=== PATIENT | female | born 1940 | race Caucasian/White ===

== ENCOUNTER 2019-11-14 08:53 | Emergency (ER) | payer MEDICARE, OTHER, SELFPAY ==
--- NOTE | ~2019-11-14 | CT_ITS ---
EXAMINATION: CT abdomen pelvis w con INDICATION: Rectal bleeding TECHNIQUE: Computed tomographic images of the abdomen and pelvis were obtained after the administrati on of 100 cc of Omnipaque 350 intravenous contrast. The dose-length product (DLP) was 626.14 mGy-cm. Automated exposure control and iterative reconstruction technique were employed. COMPARISON: 11/04/2017 FINDINGS: Minimal dependent atelectasis is present in the lung bases. Cardiomegaly is noted. There is a small sliding hiatal hernia. The gallbladder is surgically absent. There is mild enlargement of th e common bile duct and central intrahepatic ducts which is likely due to post cholecystectomy state. Punctate calcifications in otherwise normal appearing liver and spleen likely represent healed granul omatous disease. The pancreas and adrenal glands are normal. The right kidney is normal. There is an 8 mm cyst of the left kidney. There is calcified atherosclerosis of the aorta and many of the other a rteries. No pathologically enlarged abdominal or pelvic lymph nodes are identified. There is no free intraperitoneal gas or evidence of bowel obstruction. There is a fat-containing umbilical hernia. Mil d lumbar spondylosis is noted. There has been an interval burst fracture of L3 and interval compressi on fracture of L4. IMPRESSION: 1. No CT correlate for the patient's symptoms. 2. Interval L3 burst fracture and L4 compression fracture. Reviewed, dictated and finalized at location B.
[2019-11-14 08:59] VITALS: BP 205/130; PULSE 87; RESP 16; TEMP 36.6; O2SAT 100
[2019-11-14 09:15] LABS: Basophils Percent Auto 0.5 % (0.2-1.2); Eosinophils Absolute Auto 0.2 K/mm3 (0-0.3); Hematocrit 42.6 % (37.0-47.0); Hemoglobin 14.1 g/dL (12.0-15.0); Immature Granulocyte Absolute 0.02 K/mm3 (0.00-0.031); Immature Granulocyte Percent A 0.3 % (0-0.5); Lymphocytes Absolute Auto 1.85 K/mm3 (0.9-3.2); Lymphocytes Percent Auto 24.2 % (18.3-44.2); Mean Corpuscular HGB Conc 33.1 g/dl (32-36); Mean Corpuscular Hemoglobin 31.8 pg (26-34); Mean Corpuscular Volume 95.9 fl (80-100); Mean Platelet Volume 9.5 fl (7.4-10.4); Monocytes Absolute Auto 0.5 K/mm3 (0.1-0.6); Monocytes Percent Auto 6.6 % (2.6-8.5); Neutrophils Absolute Auto 5.1 K/mm3 (1.3-6.7); Neutrophils Percent Auto 66.4 % (45.5-73.1); Platelet Count Result 209 k/mm3 (150-375); Red Blood Count 4.44 M/mm3 (4.2-5.4); Red Cell Distribution Width 12.9 % (11.5-14.5); White Blood Count 7.6 K/mm3 (4.5-10.0)
[2019-11-14 09:27] LABS: INR 1.1; Prothrombin Time 14.2 Seconds (11.1-14.7)
[2019-11-14 09:28] LABS: Partial Thromboplastin Time 31.7 SECONDS (22.3-36.8)
[2019-11-14 09:29] LABS: Alanine Aminotransferase 23 U/L (4-35); Albumin Level 4.8 g/dL (3.5-5.1); Alkaline Phosphatase 105 U/L (38-126); Anion Gap 10.8 mmol/L (7-16); Aspartate Amino Transferase 32 U/L (14-36); Bilirubin,Total 0.7 mg/dL (0.2-1.3); Blood Urea Nitrogen 14 mg/dL (7-17); Calcium 9.6 mg/dL (8.4-10.2); Carbon Dioxide 30 mmol/L (22-30); Chloride 102 mmol/L (98-107); Estimated CRCL calculation 41 ml/min; Estimated Glomerular Filt Rate 60; Glucose 102 mg/dL (65-105); Potassium 3.8 mmol/L (3.4-5.0); Sodium 139 mmol/L (137-145)
[2019-11-14 09:30] VITALS: BP 180/93; PULSE 67; RESP 18; O2SAT 97
--- NOTE | 2019-11-14 09:53 | ED.GIBLEED ---
HPI - GI Bleed General Chief complaint: GI Bleed Stated complaint: Rectal bleeding Time Seen by Provider: 11/14/19 09:12 History of Present Illness HPI Narrative: Patient presents with her ,(of a different last name) rectal bleeding. Started last night. Had large clots. She takes Xarelto for 7 years for A. fib. Had a colonoscopy 2 or 3 years ago, and [place]. She does not know the name of the GI doctor. There is no colon cancer in her family. She has no abdominal pain. He has no fever, chills, or sweats. She has not been sick in the last couple weeks. He has had no COVID exposure. She drinks bourbon every night. complaint: other (Rectal clot) Onset (ago): day(s) Pain Consistency: intermittent Relieving factors: none Exacerbating factors: none Context: history of GI bleed and anticoagulant use Associated symptoms: denies other symptoms Related Data Home Medications Medication Instructions Recorded Confirmed acetazolamide 250 mg tablet 250 mg PO DAILY 03/21/19 levothyroxine 112 mcg tablet 112 mcg PO DAILY 03/21/19 Allergies Allergy/AdvReac Type Severity Reaction Status Date / Time latex Allergy Unknown Swelling Verified 11/14/19 09:02 Review of Systems Review of Systems: Narrative: CONSTITUTIONAL: Denies fever, chills, or sweats. EYES: Denies visual changes, redness, or discharge. ENT: Denies rhinorrhea, congestion, sore throat, or otalgia. CARDIOVASCULAR: Denies chest pain, palpitations, or edema. RESPIRATORY: Denies cough or dyspnea. GASTROINTESTINAL: Denies abdominal pain, nausea, vomiting, or diarrhea. GENITOURINARY: Denies dysuria or hematuria. SKIN: Denies rash or itching. MUSCULOSKELETAL: Denies back pain, joint pain, or myalgia. NEUROLOGIC: Denies headache, numbness, or weakness. PSYCHIATRIC: Denies anxiety or depression. All systems reviewed & are unremarkable except as noted in HPI and below PMFSH Past Medical History Medical History (Updated 11/14/19 @ 09:57 by Vesna Fraga MD) A-fib Benign essential hypertension BMI 33.0-33.9,adult Encounter for routine adult health examination with abnormal findings Follow up Fracture of rib of right side GERD (gastroesophageal reflux disease) Hyperlipidemia Hypothyroidism (acquired) Left hand pain On rat exterminator drug therapy Osteoporosis RLS (restless legs syndrome) Tenosynovitis of left wrist UTI (urinary tract infection) Surgical History Surgical History History of cholecystectomy History of hysterectomy History of pubovaginal sling History of vertebroplasty Social History Social History Smoking status: Former smoker Smoking end date: 04/19/04 Alcohol intake: current Gender identity (if verbalized by the patient): Female Exam Narrative: Exam Narrative: GENERAL: Well-appearing, well-nourished, and in no acute distress. HEAD: Normocephalic, atraumatic. EYES: PERRLA and EOMI. ENT: Nares clear, no rhinorrhea or epistaxis. Mucous membranes moist. NECK: Supple. CHEST: Clear to auscultation. No respiratory distress. HEART: Regular rate and rhythm. No murmur heard. Normal peripheral pulses. ABDOMEN: Soft, nontender, nondistended, normal active bowel sounds. EXTREMITIES: Normal range of motion. No edema. SKIN: Warm, dry, no rash. NEURO: No focal deficits. Alert and oriented x3. PSYCH: Normal mood and affect. Course Reevaluation(s) Reevaluation #1: Explain the CAT scan results, and Dr. Albert's recommendation that she be admitted for observation, and she and her agreed to stop the Xarelto and come into the hospital. Then just a couple minutes later, they call me back in, to say that they did not want to stay in the hospital, for chance of getting COVID. The patient will call Dr. Albert's office, and make an outpatient appointment. I gave her all the warnings of rectal bleeding, weakness, shortness of breath,
[2019-11-14 09:58] VITALS: BP 166/99; PULSE 82
[2019-11-14 10:00] VITALS: BP 163/77; PULSE 85
[2019-11-14 10:02] VITALS: BP 153/93; PULSE 88
[2019-11-14 10:59] VITALS: BP 153/92; PULSE 82; RESP 18; O2SAT 98
== END 2019-11-14 11:12 | disposition left against medical advice (07) ==
PROVIDERS: Emergency Provider Emergency Medicine; PCP Internal Medicine
DX: K62.5 Hemorrhage of anus and rectum (principal); I48.91 Unspecified atrial fibrillation; Z79.01 Long term (current) use of anticoagulants; I10 Essential (primary) hypertension; K21.9 Gastro-esophageal reflux disease without esophagitis; E78.5 Hyperlipidemia, unspecified; E03.9 Hypothyroidism, unspecified; M81.0 Age-related osteoporosis without current pathological fracture; G25.81 Restless legs syndrome; Z87.440 Personal history of urinary (tract) infections; Z87.891 Personal history of nicotine dependence
CPT/HCPCS: 36415; 74177; 80053; 85025; 85610; 85730; 86850; 86900; 86901; 99284; Q9967

== ENCOUNTER 2019-11-18 00:39 | Outpatient (CLI) | payer MEDICARE, OTHER, SELFPAY ==
[2019-11-18 18:31] LABS: SARS-CoV-2 RNA PCR Negative
== END 2019-11-18 00:40 | disposition home or self-care (01) ==
LOC: ANHCOVIDDT 00:39
PROVIDERS: PCP Internal Medicine; Visit Provider Internal Medicine Gastroenterology
DX: Z01.812 Encounter for preprocedural laboratory examination (principal); Z11.59 Encounter for screening for other viral diseases
CPT/HCPCS: 87635; C9803; U0003

== ENCOUNTER 2019-11-21 02:08 | Day surgery (SDC) | payer MEDICARE, OTHER, SELFPAY ==
[2019-11-16 11:57] VITALS: BMI 29.9
--- NOTE | 2019-11-21 07:03 | WPDANESEPPF ---
Anes - Initial Pre Proc Eval Procedure: Operation Date: 11/21/19 08:30 Proposed Procedures p Colonoscopy - Zane Martinez MD Date/Time: 11/21/19 07:03 Surgeon: Zane Martinez MD Pre Op Diagnosis: Lower GI Bleed Patient Data Age: 78 Gender: F Height: 1.56 m Weight: 73 kg Allergies Allergy/AdvReac Type Severity Reaction Status Date / Time latex Allergy Unknown Swelling Verified 11/21/19 07:26 Home Medications Medication Instructions Recorded Confirmed Type levothyroxine 112 mcg tablet 112 mcg PO DAILY 03/21/19 11/16/19 History atorvastatin 20 mg tablet 20 mg PO DAILY #90 tablet 09/18/19 11/16/19 Rx rivaroxaban 20 mg tablet 20 mg PO DAILY #90 tablet 09/18/19 11/16/19 Rx diltiazem HCl 240 mg PO QAM 11/16/19 11/16/19 History fluticasone propionate 2 spray NASAL DAILY PRN 11/16/19 11/16/19 History Patient hx anesthesia problems: none Family hx anesthesia problems: none PMFSH Past Medical History Medical History A-fib Anticoagulant long-term use Benign essential hypertension BMI 33.0-33.9,adult Encounter for routine adult health examination with abnormal findings Follow up Fracture of rib of right side GERD (gastroesophageal reflux disease) Hyperlipidemia Hypothyroidism (acquired) Left hand pain On nursing home drug therapy Osteoporosis RLS (restless legs syndrome) Tenosynovitis of left wrist UTI (urinary tract infection) Surgical History Surgical History History of cholecystectomy History of hysterectomy History of pubovaginal sling History of vertebroplasty Social History Social History Smoking status: Former smoker Smoking end date: 04/19/04 Alcohol intake: current Gender identity (if verbalized by the patient): Female Anes - Eval Final PreProcedure Day of Procedure 11/21/19 07:03 Patient weight: overweight Heart: regular rate and rhythm Lungs: clear to auscultation and normal air movement Airway: Mallampati scale class III Neurological: alert and oriented Last oral intake: >/= 8 hours ASA classification: III Emergent: no Anesthetic plan: proceed Anesthesia type and monitoring: general GIVS and standard monitoring Informed Consent: The patient's anesthetic plan and its attendant risks and benefits were discussed with the patient/family/POA. Questions were solicited and answers provided to the satisfaction of the patient/family/POA.
[2019-11-21 07:26] VITALS: BP 133/105; PULSE 91; RESP 18; TEMP 36.1; O2SAT 100
[2019-11-21] MEDS: LACTATED RINGERS 1,000 ML 150 ML IV CONT (07:51)
--- NOTE | 2019-11-21 07:54 | WPDGICN ---
Assessment and Plan Assessment and plan (1) Rectal bleeding: Code(s): K62.5 - Hemorrhage of anus and rectum Status: Acute Assessment and Plan: Patient has had recent rectal bleeding. To evaluate this colonoscopy is to be arranged. High-fiber diet is advised otherwise to help regulate bowel habits. Further recommendations will be given after colonoscopy. (2) History of colon polyps: Code(s): Z86.010 - Personal history of colonic polyps Status: Acute Assessment and Plan: Patient gives a history of prior colon polyps. This will be evaluated at time of colonoscopy performed today. Follow-up colonoscopy at intervals in the future is advised. (3) A-fib: Qualifiers: Atrial fibrillation type: unspecified Qualified Code(s): I48.91 - Unspecified atrial fibrillation Code(s): I48.91 - Unspecified atrial fibrillation Status: Acute Assessment and Plan: Patient maintained on long-term anticoagulation because of atrial fibrillation Xarelto will be held for colonoscopy. Colonoscopy to determine safety of continuing this medication. GI Consult Note Consult date/time: 11/21/19 07:54 HPI: Geri Turner is a 78 year old female seen in evaluation at the request of Dr Salazar. Patient presents for colonoscopy. Patient has had a history of colon polyps by endoscopy 2-3 years ago. After that procedure was done she had a bout of post polypectomy bleeding. She did well until 1 week ago when she experienced bright red blood per rectum associated with clots. She denies any associated abdominal or rectal pain. She does take Xarelto because of atrial fibrillation. She states her bowel habits otherwise are normal in had no other previous bleeding. Family history is noncontributory with no known history of colon or rectal disease. Review of Systems Review of Systems: All systems reviewed & are unremarkable except as noted in HPI and below PMFSH Past Medical History Medical History A-fib Anticoagulant long-term use Benign essential hypertension BMI 33.0-33.9,adult Encounter for routine adult health examination with abnormal findings Follow up Fracture of rib of right side GERD (gastroesophageal reflux disease) Hyperlipidemia Hypothyroidism (acquired) Left hand pain On terminal block assembler drug therapy Osteoporosis RLS (restless legs syndrome) Tenosynovitis of left wrist UTI (urinary tract infection) Surgical History Surgical History History of cholecystectomy History of hysterectomy History of pubovaginal sling History of vertebroplasty Social History Social History Smoking status: Former smoker Smoking end date: 04/19/04 Alcohol intake: current Gender identity (if verbalized by the patient): Female Meds Home Medications and Allergies Home Medications Medication Instructions Recorded Confirmed Type levothyroxine 112 mcg tablet 112 mcg PO DAILY 03/21/19 11/16/19 History atorvastatin 20 mg tablet 20 mg PO DAILY #90 tablet 09/18/19 11/16/19 Rx rivaroxaban 20 mg tablet 20 mg PO DAILY #90 tablet 09/18/19 11/16/19 Rx diltiazem HCl 240 mg PO QAM 11/16/19 11/16/19 History fluticasone propionate 2 spray NASAL DAILY PRN 11/16/19 11/16/19 History Allergies Allergy/AdvReac Type Severity Reaction Status Date / Time latex Allergy Unknown Swelling Verified 11/21/19 07:26 Vital Signs Vital Signs - 24 hr 11/21/19 07:26 Temperature 97.0 F L Pulse Rate 91 Respiratory Rate 18 Blood Pressure 133/105 H Pulse Oximetry 100 Exam Narrative: Exam Narrative: Physical exam reveals patient to be alert. Vital signs are stable. HEENT exam unremarkable. Lungs are clear to auscultation and percussion. Heart is without murmur or extra sounds. Heartbeat is irregularly irregular. Abdominal exam bowel sounds
[2019-11-21 09:11] VITALS: BP 154/74; PULSE 82; RESP 16; O2SAT 95
[2019-11-21 09:21] VITALS: BP 133/70; PULSE 70; RESP 18; O2SAT 97
[2019-11-21 09:31] VITALS: BP 141/74; PULSE 71; RESP 20; O2SAT 96
== END 2019-11-21 09:37 | disposition home or self-care (01) ==
PROVIDERS: PCP Internal Medicine; Visit Provider Internal Medicine Gastroenterology
PROC: 0DJD8ZZ Inspection of Lower Intestinal Tract, Via Natural or Artificial Opening Endoscopic (ICD-10-PCS; CPT 45378; principal; 2019-11-21 08:30)
DX: K62.5 Hemorrhage of anus and rectum (principal); D12.4 Benign neoplasm of descending colon; I48.91 Unspecified atrial fibrillation; I10 Essential (primary) hypertension; K21.9 Gastro-esophageal reflux disease without esophagitis; E78.5 Hyperlipidemia, unspecified; E03.9 Hypothyroidism, unspecified; M81.0 Age-related osteoporosis without current pathological fracture; G25.81 Restless legs syndrome; Z87.891 Personal history of nicotine dependence; Z79.01 Long term (current) use of anticoagulants
CPT/HCPCS: 45385; 88305; J2704; J7120

== ENCOUNTER 2020-08-12 13:10 | Outpatient (CLI) | payer MEDICARE, OTHER, SELFPAY ==
--- NOTE | ~2020-08-12 | XR_ITS ---
EXAMINATION: XR lumbar spine 6V w bending EXAM DATE: 08/12/2020 13:41 INDICATION: M54.5 - Low back pain. TECHNIQUE: Lumber spine frontal, lateral, bilateral oblique projections. Coned down frontal and lat eral L5-S1 lumbar projections for interpretation. Additional lateral flexion and lateral extension p rojections obtained. Comparison is made to prior examination from 03/05/2015. FINDINGS: Transitional lumbosacral segment with rudimentary L5-S1 disc. Otherwise, evidence of mild d isc disease, but heights relatively well-maintained. There is 2 mm anterolisthesis L3 on L4 and L4 on L5 on the extension projections. The vertebral bodies are aligned on the neutral and flexion project ions. There is no spondylolysis. Slight loss of the L4 vertebral body height overall moderate mid and lower lumbar facet arthropathy. Moderate scattered abdominal aortic arterial sclerosis. Sacrum, sacr oiliac joints, sacral arcuate lines are intact. There are cholecystectomy clips. There are no acute f ractures identified. IMPRESSION: 1. Mild chronic appearing L4 compression fracture. 2. Moderate facet arthropathy. 3. Mild disc disease. Reviewed, dictated and finalized at location A.
== END 2020-08-12 13:11 | disposition home or self-care (01) ==
PROVIDERS: PCP Internal Medicine; Visit Provider Internal Medicine
DX: M51.36 Other intervertebral disc degeneration, lumbar region (principal)
CPT/HCPCS: 72114

== ENCOUNTER 2020-08-14 13:47 | Outpatient (CLI) | payer MEDICARE, OTHER, SELFPAY ==
--- NOTE | ~2020-08-14 | MM_ITS ---
EXAMINATION: MM screening zaire BI w naveen HISTORY: Screening mammogram TECHNIQUE: Craniocaudal and mediolateral oblique 3-D tomosynthesis images were obtained and synthetic 2-D images were generated. CAD analysis was submitted and interpreted. COMPARISON: 12/06/2016 bilateral digital screening mammogram 07/10/2013 bilateral diagnostic digital mammogram and bilateral breast ultrasound examination 06/30/2013 bilateral digital screening mammogram BREAST PARENCHYMAL COMPOSITION: There are scattered areas of fibroglandular density. FINDINGS: Bilateral mammographic asymmetries and possible new opacities since 12/10/2016 IMPRESSION: 1. Bilateral asymmetries and possible new mammographic opacities 2. Bilateral diagnostic mammography and breast ultrasound examination are recommended BI-RADS Category 0: Incomplete: Needs additional imaging evaluation. Reviewed, dictated and finalized at location A. IMPRESSION: 1. Bilateral asymmetries and possible new mammographic opacities 2. Bilateral diagnostic mammography and breast ultrasound examination are recom mended BI-RADS Category 0: Incomplete: Needs additional imaging evaluation.
== END 2020-08-14 13:48 | disposition home or self-care (01) ==
PROVIDERS: PCP Internal Medicine; Visit Provider Internal Medicine
DX: Z12.31 Encounter for screening mammogram for malignant neoplasm of breast (principal); R92.8 Other abnormal and inconclusive findings on diagnostic imaging of breast
CPT/HCPCS: 77063; 77067

== ENCOUNTER 2020-08-26 10:57 | Outpatient (CLI) | payer MEDICARE, OTHER, SELFPAY | END 2020-08-26 10:58 | disposition home or self-care (01) | LOC: ANHAUDIO 10:59 | PROVIDERS: PCP Internal Medicine; Visit Provider Internal Medicine | DX: H90.3 Sensorineural hearing loss, bilateral (principal) | CPT/HCPCS: 92557; 92567 ==

== ENCOUNTER 2020-08-29 12:11 | Outpatient (CLI) | payer MEDICARE, OTHER, SELFPAY ==
--- NOTE | ~2020-08-29 | MMUS_ITS ---
EXAMINATION: MM diagnostic mammo BI, US breast BI limited HISTORY: Bilateral breast asymmetries on screening mammogram TECHNIQUE: Additional 3-D tomosynthesis images of the breasts were performed and synthetic 2-D images were generated. CAD analysis was submitted and interpreted. High resolution limited bilateral breast ultrasound was performed. COMPARISON: 08/14/2020, 11/20/2016, 07/10/2013 FINDINGS: MAMMOGRAPHIC FINDINGS: Left breast: There is a return to baseline fibroglandular appearance with spot compression of the lef t breast in the area questioned on screening mammogram. Right breast: There is a return to baseline fibroglandular appearance with spot compression of the ri ght breast in the area questioned on screening mammogram. ULTRASOUND: There is no evidence of focal abnormal solid or cystic mass in the vicinity of the findings questione d on screening mammogram. IMPRESSION: 1. No mammographic or sonographic evidence of malignancy. 2. Recommend annual screening mammography while the patient remains in good health. BI-RADS Category 2: Benign finding(s). Reviewed, dictated and finalized at location A. IMPRESSION: 1. No mammographic or sonographic evidence of malignancy. 2. Recommend annual screening mammography while the patient remains in good hea lth. BI-RADS Category 2: Benign finding(s).
== END 2020-08-29 12:12 | disposition home or self-care (01) ==
LOC: ANHIMG 12:12
PROVIDERS: PCP Internal Medicine; Visit Provider Internal Medicine
DX: R92.8 Other abnormal and inconclusive findings on diagnostic imaging of breast (principal)
CPT/HCPCS: 76642; 77066

== ENCOUNTER 2020-11-25 12:46 | Outpatient (CLI) | payer MEDICARE, OTHER, SELFPAY ==
--- NOTE | ~2020-11-25 | US_ITS ---
EXAMINATION: US venous doppler LE RT DATE: 11/25/2020 13:17 INDICATION: Right lower limb pain. TECHNIQUE: Grayscale ultrasound images without and with compression and Doppler ultrasound images of the right lower extremity veins were obtained. COMPARISON: None. FINDINGS: The visualized portions of right common femoral vein, profunda (deep) femoral vein, femoral vein, pop liteal vein, peroneal veins, posterior tibial veins, and greater saphenous vein outflow are patent. IMPRESSION: 1. No deep venous thrombosis. Reviewed, dictated and finalized at location A.
== END 2020-11-25 12:47 | disposition home or self-care (01) ==
PROVIDERS: PCP Internal Medicine; Visit Provider Internal Medicine
DX: M79.604 Pain in right leg (principal); M79.89 Other specified soft tissue disorders
CPT/HCPCS: 93971

== ENCOUNTER 2021-06-24 15:19 | Outpatient (CLI) | payer MEDICARE, OTHER, SELFPAY ==
[2021-06-24 16:59] LABS: Folic Acid > 20.0 ng/mL (2.76->20)
[2021-06-29 10:03] LABS: Vitamin B1 22 nmol/L (8-30)
[2021-06-29 10:54] LABS: Vitamin B6 15.2 ng/mL (2.1-21.7)
[2021-07-01 03:35] LABS: Vitamin B2 24.6 nmol/L (6.2-39.0)
== END 2021-06-24 15:20 | disposition home or self-care (01) ==
LOC: ANHLAB 15:24
PROVIDERS: PCP Internal Medicine; Visit Provider Internal Medicine
DX: G62.9 Polyneuropathy, unspecified (principal); Z79.899 Other long term (current) drug therapy
CPT/HCPCS: 36415; 82607; 82746; 84207; 84252; 84425

== ENCOUNTER 2021-07-15 09:57 | Outpatient (CLI) | payer MEDICARE, OTHER, SELFPAY ==
--- NOTE | ~2021-07-15 | XR_ITS ---
EXAMINATION: XR UGI w barium swallow DATE: 07/15/2021 10:37 INDICATION: Dysphagia. TECHNIQUE: The patient drank thick barium, gas-producing crystals, and thin barium. Fluoroscopy of th e esophagus, stomach, and proximal small bowel was performed. Fluoroscopy exposure time was 0.9 minut es. The total number of images was 280. Total dose-area product was 2.57 Gy-cm^2. COMPARISON: CT abdomen and pelvis 11/14/2019 FINDINGS: There is no mass or stricture of the esophagus. There is decreased primary and secondary es ophageal peristalsis. Abnormal tertiary waves were noted. There is a moderate-sized sliding hiatal he rnia. There was no gastroesophageal reflux with provocative maneuvers. The proximal small bowel shows a normal folding pattern. IMPRESSION: 1. Severe esophageal dysmotility. 2. Moderate-sized sliding hiatal hernia. Reviewed, dictated and finalized at location A.
--- NOTE | ~2021-07-15 | US_ITS ---
EXAMINATION: US venous doppler LE EXAM DATE: 07/15/2021 11:01 INDICATION: R60.0 - Localized edema. TECHNIQUE: Multiple grayscale, color flow and Doppler images of the lower extremity deep venous syste ms bilaterally were obtained and reviewed. Comparison is made to prior examination from 11/25/2020. FINDINGS: Right side: The right common femoral, femoral and profunda veins demonstrate normal color flow, respi ratory variation, augmentation and compressibility. Compressibility, color flow confirmed within the right popliteal, posterior tibial, peroneal, and greater saphenous veins. Left side: The left common femoral, femoral and profunda veins demonstrate normal color flow, respira tory variation, augmentation and compressibility. Compressibility, color flow confirmed within the l eft popliteal, posterior tibial, peroneal, and greater saphenous veins. IMPRESSION: No lower extremity deep venous thrombosis bilaterally. Reviewed, dictated and finalized at location B.
== END 2021-07-15 09:58 | disposition home or self-care (01) ==
LOC: ANHIMG 10:00
PROVIDERS: PCP Internal Medicine; Visit Provider Internal Medicine
DX: R13.10 Dysphagia, unspecified (principal); I87.2 Venous insufficiency (chronic) (peripheral); R60.0 Localized edema; K44.9 Diaphragmatic hernia without obstruction or gangrene
CPT/HCPCS: 74240; 93970

== ENCOUNTER 2021-09-26 05:46 | Emergency (ER) | payer MEDICARE, OTHER, SELFPAY ==
[2021-09-26 05:49] VITALS: BP 133/68; PULSE 95; RESP 22; TEMP 36.6; O2SAT 98
[2021-09-26] MEDS: OXYMETAZOLINE HCL 0.05% NAS 15 ML BTL (*BKC) 1 SPRAY (06:29)
--- NOTE | 2021-09-26 06:29 | ED.EPISTAXIS ---
HPI - Epistaxis General Chief complaint: Epistaxis Stated complaint: bloody nose Time Seen by Provider: 09/26/21 06:15 Source: patient History of Present Illness HPI Narrative: Patient presents with a nosebleed. She is on rivaroxaban. She had intermittent nosebleeds for the past month she was in [place] went to an ER doctor had it cauterized. Initially doing well this morning she rubbed her nose and had return of her nosebleed. This is primarily coming out of the right nare. She is unable to stop at home so she came to the ER for further evaluation. Denies any lightheadedness or dizziness Related Data Home Medications Medication Instructions Recorded Confirmed calcium carbonate 300 mg (750 mg) 300 mg PO BID 05/07/20 09/09/21 chewable tablet (Tums) teriparatide 20 mcg/dose (600 20 mcg subcut DAILY 09/09/21 09/09/21 mcg/2.4 mL) subcutaneous pen injector (Forteo) Allergies Allergy/AdvReac Type Severity Reaction Status Date / Time latex Allergy Unknown Swelling Verified 09/26/21 05:57 Review of Systems Review of Systems: CONSTITUTIONAL: Denies fever, chills, or sweats. EYES: Denies visual changes, redness, or discharge. ENT: Denies rhinorrhea, congestion, sore throat, or otalgia. CARDIOVASCULAR: Denies chest pain, palpitations, or edema. RESPIRATORY: Denies cough or dyspnea. GASTROINTESTINAL: Denies abdominal pain, nausea, vomiting, or diarrhea. MUSCULOSKELETAL: Denies back pain, joint pain, or myalgia. NEUROLOGIC: Denies headache, numbness, dizziness, or weakness. [facility] Past Medical History Medical History A-fib Abnormal mammogram Anticoagulant long-term use Benign essential hypertension BMI 31.0-31.9,adult BMI 32.0-32.9,adult BMI 33.0-33.9,adult Dysphagia Edema of both lower extremities Encounter for Medicare annual wellness exam Encounter for routine adult health examination with abnormal findings Encounter for routine adult health examination without abnormal findings Envenomation Follow up Fracture of rib of right side GERD (gastroesophageal reflux disease) Hearing loss Hyperlipidemia Hypothyroidism (acquired) Impacted cerumen of right ear Insomnia Left hand pain Low back strain On [facility] drug therapy Osteopenia Osteoporosis Peripheral neuropathy Right leg pain Right leg swelling RLS (restless legs syndrome) Tenosynovitis of left wrist UTI (urinary tract infection) Venous insufficiency of both lower extremities Surgical History Surgical History History of cholecystectomy History of hysterectomy History of pubovaginal sling History of vertebroplasty Social History Social History Smoking status: Former smoker Smoking end date: 04/19/04 Alcohol intake: current Gender identity (if verbalized by the patient): Female Exam Narrative: GENERAL: Well-appearing, well-nourished, and in no acute distress. HEAD: Normocephalic, atraumatic. EYES: PERRLA and EOMI. ENT: Nares clear, no rhinorrhea or epistaxis. Mucous membranes moist. There is irritation of bilateral nares right worse than rest there is clots noted in the right nare no active bleeding. NECK: Supple. No masses. No JVD EXTREMITIES: Normal range of motion. No edema. SKIN: Warm, dry, no rash. NEURO: No focal deficits. Alert and oriented x3. PSYCH: Normal mood and affect. Course Reevaluation(s) Reevaluation #1: No active bleeding on exam. Patient was treated with pressure and Afrin. Patient is comfortable outpatient plan. Date: 09/26/21 Time: 07:15 Vital Signs Vital signs: Vital Signs Temperature 36.6 C 09/26/21 05:49 Pulse Rate 95 09/26/21 05:49 Respiratory Rate 22 H 09/26/21 05:49 Blood Pressure 133/68 09/26/21 05:49 Pulse Oximetry 98 09/26/21 05:49 Oxygen Delivery Room Air 09/26/21 05:49 Temperature 36.6 C 09/26/21
[2021-09-26 07:51] VITALS: BP 107/59; PULSE 66; RESP 18; O2SAT 97
== END 2021-09-26 07:57 | disposition home or self-care (01) ==
PROVIDERS: Emergency Provider Emergency Medicine; PCP Internal Medicine
DX: R04.0 Epistaxis (principal); I48.91 Unspecified atrial fibrillation; I10 Essential (primary) hypertension; E78.5 Hyperlipidemia, unspecified; E03.9 Hypothyroidism, unspecified; K21.9 Gastro-esophageal reflux disease without esophagitis; M85.80 Other specified disorders of bone density and structure, unspecified site; M81.0 Age-related osteoporosis without current pathological fracture; G62.9 Polyneuropathy, unspecified; G25.81 Restless legs syndrome; Z87.440 Personal history of urinary (tract) infections; Z79.01 Long term (current) use of anticoagulants; Z87.891 Personal history of nicotine dependence
CPT/HCPCS: 99282; A9270

== ENCOUNTER 2021-10-21 09:08 | Outpatient (CLI) | payer MEDICARE, OTHER, SELFPAY ==
--- NOTE | ~2021-10-21 | MM_ITS ---
EXAMINATION: MM screening zaire BI w naveen HISTORY: Screening TECHNIQUE: Craniocaudal and mediolateral oblique 3-D tomosynthesis images were obtained and synthetic 2-D images were generated. CAD analysis was submitted and interpreted. COMPARISON: Comparison to multiple prior studies sequentially, with oldest reviewed study dated 06/30. BREAST PARENCHYMAL COMPOSITION: Breast composed of scattered areas of fibroglandular density FINDINGS: There is no evidence of suspicious mass, calcification, or architectural distortion to sugg est malignancy in either breast. There has been no suspicious interval change. IMPRESSION: 1. No mammographic evidence of malignancy. 2. Recommend routine screening mammography in one year. BI-RADS Category 1: Negative Reviewed, dictated and finalized at location A.
== END 2021-10-21 09:09 | disposition home or self-care (01) ==
PROVIDERS: PCP Internal Medicine; Visit Provider Internal Medicine
DX: Z12.31 Encounter for screening mammogram for malignant neoplasm of breast (principal)
CPT/HCPCS: 77063; 77067

== ENCOUNTER 2022-09-19 13:41 | Emergency (ER) | payer MEDICARE, OTHER, SELFPAY ==
--- NOTE | 2022-09-19 13:48 | ED.GENADULT ---
HPI - General Adult General Chief complaint: Upper Respiratory Infection Stated complaint: cough Time Seen by Provider: 09/19/22 13:55 Source: patient, RN notes reviewed and old records reviewed Mode of arrival: ambulatory Limitations: no limitations History of Present Illness HPI narrative: 81-year-old female presents to the [facility] with a cough x1 month. Has tried opon-vuf-fcdlgrt products like DayQuil. Onset (ago): month(s) (1) Related Data Home Medications Medication Instructions Recorded Confirmed calcium carbonate 300 mg (750 mg) 300 mg PO BID 05/07/20 09/19/22 chewable tablet (Tums) teriparatide 20 mcg/dose (600 20 mcg subcut DAILY 09/09/21 09/19/22 mcg/2.4 mL) subcutaneous pen injector (Forteo) Allergies Allergy/AdvReac Type Severity Reaction Status Date / Time latex Allergy Intermediate Swelling Verified 09/19/22 13:46 Review of Systems Review of Systems: All systems reviewed & are unremarkable except as noted in HPI and below Constitutional: Constitutional: Reports no additional constitutional complaints Eyes: Eyes: Reports no additional eye complaints ENT: Reports system reviewed and no additional complaints, except as documented Cardiovascular: Cardiovascular: Reports no additional cardiovascular complaints, Denies chest pain and Denies dyspnea Respiratory: Respiratory: Reports as per HPI, Denies chest congestion, Reports cough and Denies dyspnea Gastrointestinal: Gastrointestinal: Reports no additional gastrointestinal complaints, Denies abdominal pain, Denies nausea and Denies vomiting Musculoskeletal: Musculoskeletal: Reports no additional musculoskeletal complaints Integumentary/Breasts: Skin/Breast: Reports system reviewed and no additional complaints, except as docu Neurologic: Reports system reviewed and no additional complaints, except as documented Psychiatric: Psychiatric: Reports no additional psychiatric complaints Allergic/Immunologic: Allergic/Immunologic: Reports no additional allergic/immunologic complaints [facility] Past Medical History Medical History A-fib Abnormal mammogram Anticoagulant long-term use Benign essential hypertension BMI 30.0-30.9,adult BMI 31.0-31.9,adult BMI 32.0-32.9,adult BMI 33.0-33.9,adult Dysphagia Edema of both lower extremities Encounter for Medicare annual wellness exam Encounter for routine adult health examination with abnormal findings Encounter for routine adult health examination without abnormal findings Envenomation Follow up Fracture of rib of right side GERD (gastroesophageal reflux disease) Hearing loss Hyperlipidemia Hypothyroidism (acquired) Impacted cerumen of right ear Insomnia Left hand pain Low back strain On staffing executive drug therapy Osteopenia Osteoporosis Peripheral neuropathy Rectocele Right leg pain Right leg swelling RLS (restless legs syndrome) Tenosynovitis of left wrist UTI (urinary tract infection) Venous insufficiency of both lower extremities Surgical History Surgical History History of cholecystectomy History of hysterectomy History of pubovaginal sling History of vertebroplasty Social History Social History Smoking status: Former smoker Smoking end date: 04/19/04 Alcohol intake: current Lack of Transportation: No Lack of Food: Never True Current Housing: I Have Housing Concerned About Future Housing: No Difficulty Paying Gas/Electric Bills: No Difficulty Paying for Meds: No Currently Unemployed: No Education: Bachelor's Degree Difficulty w/ Childcare or Family Care: No Gender identity (if verbalized by the patient): Female Comments At the time of my signature, I reviewed and agree with the nursing past medical, surgical, social, and family history. There is no relevant family history pertinent to the
[2022-09-19 13:50] VITALS: BP 122/69; PULSE 101; RESP 16; TEMP 37.7; O2SAT 97
== END 2022-09-19 14:26 | disposition home or self-care (01) ==
PROVIDERS: Emergency Provider Nurse Practitioner; PCP Internal Medicine
DX: J32.9 Chronic sinusitis, unspecified (principal); J40 Bronchitis, not specified as acute or chronic; Z87.891 Personal history of nicotine dependence; I48.91 Unspecified atrial fibrillation; Z79.01 Long term (current) use of anticoagulants; K21.9 Gastro-esophageal reflux disease without esophagitis; E78.5 Hyperlipidemia, unspecified; E03.9 Hypothyroidism, unspecified; M81.0 Age-related osteoporosis without current pathological fracture; M85.80 Other specified disorders of bone density and structure, unspecified site; G62.9 Polyneuropathy, unspecified; G25.81 Restless legs syndrome
CPT/HCPCS: 99213; G0463

== ENCOUNTER 2025-03-20 10:57 | Outpatient (CLI) | payer MEDICARE, OTHER, SELFPAY ==
--- NOTE | ~2025-03-20 | CT_ITS ---
EXAMINATION: CT abdomen pelvis w con DATE: 03/20/2025 12:52 INDICATION: Unspecified abdominal pain TECHNIQUE: Computed tomography (CT) of the abdomen and pelvis was performed with 100 mL Omnipaque-350 intravenous contrast. Automated exposure control and iterative reconstruction technique were employed. The dose-length product was 570.28 mGy-cm. COMPARISON: 11/13/2009 FINDINGS: Again seen are peripheral irregular septal line thickening with honeycombing consistent with mild usual interstitial pneumonia (UIP) pattern chronic interstitial lung disease. Mild cardiomegaly. Atherosclerotic coronary artery calcific location. Small amount of aortic valve calcification. No pericardial or pleural effusion. Moderate-sized sliding-type hiatal hernia. Several scattered small calcified nodules in the liver and spleen consistent with old granulomatous disease. Mild focal hepatic steatosis at the ligamentum teres. Cholecystectomy clips at gallbladder fossa. Pancreas, bilateral adrenal glands and right kidney are normal. 1.2 cm exophytic cyst at the upper pole of the left kidney. Moderate diverticulosis with descending and sigmoid colon predominance and without adjacent from trace stranding to suggest diverticulitis. Small bowel and appendix are normal. Bladder is normal. The uterus is not identified and has likely been surgically resected. No free intraperitoneal gas or fluid. No pat hologically enlarged abdominal or pelvic lymphadenopathy. Multiple small enhancing vessels at the distal rectum suggestive of hemorrhoids. There is calcified atherosclerosis of the aorta and many of the other arteries. 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 The aorta and aneurysm together measure up to 3.5 x 3.4 cm in maximal transaxial dimensions. Moderate thoracic and lumbar spondylosis with partially visualized vertebroplasty at T8. Stable appearance of chronic L3 burst fracture and L4 compression fracture with mild depression of the superior endplates. IMPRESSION: 1. No acute intra-abdominal/pelvic process. 2. 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 3. Moderate-sized sliding-type hiatal hernia. 4. Cardiomegaly. 5. Diverticulosis. 6. Numerous contrast-enhanced vessels at the distal rectum suggesting hemorrhoids. Reviewed, dictated and finalized at location A. [employer] IMPRESSION: 1. No acute intra-abdominal/pelvic process. 2. Interval increase in size of a small saccular aneurysm along the anterior ma rgin of the infrarenal aorta which measures up to 3.5 cm x 3.[address] 3. Moderate-sized sliding-type hiatal hernia. 4. Cardiomegaly. 5. Diverticulosis. 6. Numerous contrast-enhanced vessels at the distal rectum suggesting hemorrhoi ds.
[2025-03-20 12:46] LABS: Estimated Glomerular Filt Rate 60
[2025-03-20 13:31] LABS: Hematocrit 43.4 % (37.0-47.0); Hemoglobin 14.3 g/dL (12.0-15.0); Immature Granulocyte Percent A 0.5 % (0-0.5); Lymphocytes Absolute Auto 1.41 K/mm3 (0.9-3.2); Mean Corpuscular HGB Conc 32.9 g/dl (32-36); Mean Corpuscular Hemoglobin 31.7 pg (26-34); Mean Corpuscular Volume 96.2 fl (80-100); Nucleated Red Blood Cells Absolute Auto 0.000 K/mm3 (0.0-0.012); Nucleated Red Blood Cells Perc 0.0 % (0.0-0.2); Platelet Count Result 201 k/mm3 (150-375); Red Blood Count 4.51 M/mm3 (4.2-5.4); White Blood Count 6.5 K/mm3 (4.5-10.0)
[2025-03-20 13:43] LABS: Anion Gap 6 mmol/L (4-12); Blood Urea Nitrogen 12 mg/dL (7-17); Calcium 9.4 mg/dL (8.4-10.2); Carbon Dioxide 28 mmol/L (22-30); Chloride 102 mmol/L (98-107); Estimated Glomerular Filt Rate > 60; Glucose 90 mg/dL (65-110); Potassium 3.8 mmol/L (3.4-5.0); Sodium 136 mmol/L (137-145)
[2025-03-20 13:58] LABS: Iron 109 ug/dL (37-170)
[2025-03-20 14:07] LABS: Percent Iron Saturation 35 % (20-50)
[2025-03-20 14:26] LABS: Ferritin 53.20 ng/mL (11.1-264)
== END 2025-03-20 10:58 | disposition home or self-care (01) ==
PROVIDERS: PCP Internal Medicine; Visit Provider Internal Medicine
DX: R10.9 Unspecified abdominal pain (principal); K62.89 Other specified diseases of anus and rectum; K62.5 Hemorrhage of anus and rectum; I51.7 Cardiomegaly; K57.30 Diverticulosis of large intestine without perforation or abscess without bleeding; K44.9 Diaphragmatic hernia without obstruction or gangrene
CPT/HCPCS: 36415; 74177; 80048; 82728; 83540; 83550; 85025; Q9967